=== PATIENT | male | born 1995 | race Asian ===

== ENCOUNTER 2019-07-04 19:09 | Emergency (ER) | payer OTHER ==
[~2019-07-04] VITALS: Ht 167.6 cm; Wt 71.7 kg
[2019-07-04 18:29] VITALS: BP 154/85
--- NOTE | 2019-07-04 18:30 | NUR ---
ED Nurse Note: Pt from home brought in by [facility] 13 due to SOB x 30 mins ago. Denies CP. No recent travel or fever. AAO x4 and ambulatory.
--- NOTE | 2019-07-04 18:59 | NUR ---
HAND-OFF: Report given to Tracy HERNÁNDEZ.
--- NOTE | 2019-07-04 19:05 | Emergency Room Report ---
History of Present Illness General Chief Complaint: Dyspnea/Respdistress Source: Patient Present Illness HPI 24-year-old male presents to the emergency department complaining of isolated transient episode of hyperventilation, feeling short of breath, numbness and tingling in the bilateral hands as well as some muscle spasm in the hands x30 minutes. He denied having CP. Patient reports that his symptoms began to resolve once paramedics arrived at his house and told him to calm down. He denies pain. Denies dizziness, Palpitations, AMS/LOC/Syncope. He denies cardiac history, history of asthma, COPD or smoking. Patient denies doing anything strenuous prior to onset of his symptoms. He denies being under any significant amount of stress. He reports having a mild cough without fevers or chills or sputum production several days ago. Denies history of anxiety or panic attacks. Denies recent travel. Denies contact with persons who have tested positive for or are under investigation/quarantine for COVID-19. Pt. denies hx of similar episode in the past. Denies PMHX. Allergies: Coded Allergies: No Known Allergies (Unverified , 07/04/19) COVID-19 Screening Contact w/high risk pt: No Recent Travel to affected area: No Experienced COVID-19 symptoms?: Yes COVID-19 symptoms experienced: Shortness of Breath Patient History Past Medical History: see triage record Past Surgical History: none Pertinent Family History: none Reviewed Nursing Documentation: PMH: Agreed; PSxH: Agreed Nursing Documentation-PMH Past Medical History: No Stated History Review of Systems All Other Systems: negative except mentioned in HPI Physical Exam Vital Signs Date Time Temp Pulse Resp B/P (MAP) Pulse Ox O2 Delivery O2 Flow Rate FiO2 07/04/19 18:29 97.0 90 18 154/85 (108) 100 Room Air Sp02 EP Interpretation: reviewed, normal General Appearance: no apparent distress, alert, GCS 15, non-toxic Head: normocephalic, atraumatic Eyes: bilateral eye normal inspection, bilateral eye PERRL ENT: hearing grossly normal, normal voice Neck: full range of motion Respiratory: chest non-tender, lungs clear, normal breath sounds, no respiratory distress, no accessory muscle use, no wheezing, speaking full sentences Cardiovascular #1: regular rate, rhythm, no edema, normal capillary refill Genitourinary: normal inspection Musculoskeletal: back normal, normal range of motion, gait/station normal, non- tender Neurologic: alert, motor strength/tone normal, oriented x3, sensory intact, responsive, speech normal Psychiatric: judgement/insight normal Skin: normal color Medical Decision Making PA Attestation Dr. Sultana is my supervising Physician whom patient management has been discussed with. Diagnostic Impression: Primary Impression: Hyperventilation syndrome ER Course 24-year-old male presents to the emergency department complaining of isolated transient episode of hyperventilation, feeling short of breath, numbness and tingling in the bilateral hands as well as some muscle spasm in the hands x30 minutes. He denied having CP. Patient reports that his symptoms began to resolve once paramedics arrived at his house and told him to calm down. He denies pain. Denies dizziness, Palpitations, AMS/LOC/Syncope. He denies cardiac history, history of asthma, COPD or smoking. Patient denies doing anything strenuous prior to onset of his symptoms. He denies being under any significant amount of stress. He reports having a mild cough without fevers or chills or sputum production several days ago. Denies history of anxiety or panic attacks. Denies recent travel. Denies contact with persons who have tested positive for or are under investigation/quarantine for COVID-19. Pt. denies hx of similar episode in the past. Denies PMHX. Ddx considered but are not limited to anxiety, TN, PE, asthma, thyroid storm, hyperthyroid, EPS Vital signs: are WNL, pt. is afebrile H&PE are most consistent with hyperventilation syndrome in a pt. with low Cardiac RF and has a Wells criteria of zero. ORDERS: none required at this time, the diagnosis is clinical ED INTERVENTIONS: - None required at this time. Pt. is asymptomatic DISCHARGE: At this time pt. is stable for d/c to home. Will provide printed patient care instructions, and any necessary prescriptions. Care plan and follow up instructions have been discussed with the patient prior to discharge. Last Vital Signs Date Time Temp Pulse Resp B/P (MAP) Pulse Ox O2 Delivery O2 Flow Rate FiO2 07/04/19 18:39 90 18 Room Air 07/04/19 18:29 97.0 154/85 100 Disposition: HOME, SELF-CARE Condition: Stable Patient Instructions: Hyperventilation, Shortness of Breath, [id number] Additional Instructions: Take medications as directed. Follow up with a Primary Care Provider in 3-5 days, even if your symptoms have resolved. --Please review list of primary care clinics, if you do not already have a primary care provider Return sooner to ED if new symptoms occur, or current symptoms become worse. - Please note that this Emergency Department Report was dictated using [employer] designer technology software, occasionally this can lead to erroneous entry secondary to interpretation by the dictation equipment. Rosie Dominguez Jul 04, 2019 19:05
[2019-07-04 19:48] VITALS: BP 154/85
--- NOTE | 2019-07-04 19:48 | NUR ---
ER DISCHARGE NOTE: Patient is cleared to be discharged per ERMD, pt is aox4, on room air, with stable vital signs. pt was given dc instructions, pt was able to verbalize understanding, pt id band removed without complications. pt is able to ambulate with steady gait. pt took all belongings.
== END 2019-07-04 19:48 | disposition home or self-care (01) ==
LOC: EDBD 19:09 → EMR 19:40
DX: F45.8 Other somatoform disorders (principal); R20.0 Anesthesia of skin; R06.02 Shortness of breath
CPT/HCPCS: 99282

== ENCOUNTER 2019-07-20 17:24 | Emergency (ER) | payer OTHER ==
[~2019-07-20] VITALS: Ht 167.6 cm; Wt 70.3 kg
[2019-07-20 18:30] VITALS: BP 128/85
[2019-07-20] MEDS ORDERED: AMITRIPTYLINE100 MG ORAL (18:31)
[2019-07-20] MEDS ORDERED: XANAX0.25 MG ORAL (18:32)
[2019-07-20] MEDS ORDERED: LORazepam 1mg tab ORAL ONE (18:45)
--- NOTE | 2019-07-20 18:56 | Emergency Room Report ---
History of Present Illness General Chief Complaint: Behavioral Complaint Source: Patient Present Illness HPI 24-year-old male with history of depression and anxiety who used to take amitriptyline and has psychiatrist to follow-up with here complaining of increased anxiety and feeling like he is hyperventilating. Upon arrival he reported that last night he was hyperventilating too much that he decided that maybe it is easier for him to be however denies any suicidal ideation or homicidal ideation at this time. Patient reports that he did not even have any suicidal ideation last night. Reports that he has never felt or tried harming himself or others. Reports that he has an appointment with psychiatrist tomorrow. I had my nurse Linda with me and we asked the patient 3 times if he has any suicidal ideation at this time and he denied all 3 times. Patient feels like whenever he takes anxiety medication he hyperventilates and he thinks that it is his lungs acting up. Reports that he does not want to be taking medication on daily basis. Patient prefers to go see his own psychiatrist rather than getting into any mental health facility. Patient has full judgment on making his decisions. My nurse presented was present as my witness the whole time. Denies any SOB and chest pain at this time. Denies cough and congestion fever at this time. Denies drug use and tobacco smoke. Denies alcohol intake. Patient was also seen [facility] on July 04, 2019 for the same reason. Allergies: Coded Allergies: No Known Allergies (Unverified , 07/04/19) Patient History Past Medical History: see triage record Past Surgical History: none Family History: none Immunizations: UTD Reviewed Nursing Documentation: PMH: Agreed; PSxH: Agreed Nursing Documentation-PMH Past Medical History: No History, Except For History Of Psychiatric Problem: Yes - depression Review of Systems All Other Systems: negative except mentioned in HPI Physical Exam Vital Signs Date Time Temp Pulse Resp B/P (MAP) Pulse Ox O2 Delivery O2 Flow Rate FiO2 07/20/19 18:21 97.7 74 16 132/82 (99) 99 Room Air Sp02 EP Interpretation: reviewed, normal General Appearance: alert/responsive, no apparent distress, GCS 15, non-toxic Head: atraumatic Eyes: PERRL, lids + conjunctiva normal ENT: hearing intact, no angioedema Neck: supple/symm/no masses, no meningismus Respiratory: effort normal, no wheezing, chest symmetrical Cardiovascular: regular rate, rhythm, no edema Gastrointestinal: non-tender, no mass, non-distended, no rebound/guarding, normal bowel sounds Musculoskeletal: gait & station normal, normal ROM, strength & tone normal, non -tender Neurologic: oriented x3, sensory intact, normal speech Psychiatric: judgment & insight normal, no suicidal/homicidal ideation, anxious Suicide Risk Assessment: Suicidal Ideation: No Had intent to initiate attempt: No Pt's plan for suicide attempt: No Has means to complete attempt: No Skin: normal inspection Lymphatic: normal inspection Medical Decision Making PA Attestation All my diagnosis and treatment plans were reviewed ad discussed with my supervising physician Dr. Carlson Diagnostic Impression: Primary Impression: Anxiety ER Course 24-year-old male with history of depression and anxiety who used to take amitriptyline and has psychiatrist to follow-up with here complaining of increased anxiety and feeling like he is hyperventilating. Upon arrival he reported that last night he was hyperventilating too much that he decided that maybe it is easier for him to be however denies any suicidal ideation or homicidal ideation at this time. Patient reports that he did not even have any suicidal ideation last night. Reports that he has never felt or tried harming himself or others. Reports that he has an appointment with psychiatrist tomorrow. I had my nurse Linda with me and we asked the patient 3 times if he has any suicidal ideation at this time and he denied all 3 times. Patient feels like whenever he takes anxiety medication he hyperventilates and he thinks that it is his lungs acting up. Reports that he does not want to be taking medication on daily basis. Patient prefers to go see his own psychiatrist rather than getting into any mental health facility. Patient has full judgment on making his decisions. My nurse presented was present as my witness the whole time. Denies any SOB and chest pain at this time. Denies cough and congestion fever at this time. Denies drug use and tobacco smoke. Denies alcohol intake. Patient was also seen [facility] on July 04, 2019 for the same reason. Patient reports that he has been dealing with anxiety for a very long time Ddx considered but are not limited to: generalized anxiety disorder, panic attack, depression with psychotic feature, bipolar disorder, drug overdose Vital signs: are WNL, pt. is afebrile H&PE are most consistent with: Anxiety ORDERS: Chest x-ray to assure patient that his lungs are okay, ED INTERVENTIONS: Ativan p.o. however patient refuses as he believes that it is not his anxiety and he is afraid he is going to hyperventilate again DISCHARGE: At this time pt. is stable for d/c to home. Will provide printed patient care instructions, and any necessary prescriptions. Care plan and follow up instructions have been discussed with the patient prior to discharge. Follow-up with primary doctor and psychiatrist patient prefers to follow-up with his own psychiatrist. Denies any suicidal ideation upon discharge. Chest X-Ray Diagnostic Results Chest X-Ray Diagnostic Results : Chest X-Ray Ordered: Yes # of Views/Limited/Complete: 1 View Indication: Other EP Interpretation: Yes Interpretation: no consolidation, no effusion, no pneumothorax Impression: No acute disease Electronically Signed by: Sae Palm PA-C Last Vital Signs Date Time Temp Pulse Resp B/P (MAP) Pulse Ox O2 Delivery O2 Flow Rate FiO2 07/20/19 18:21 97.7 74 16 132/82 (99) 99 Room Air Disposition: HOME, SELF-CARE Condition: Stable Referrals: NON PHYSICIAN (PCP) Patient Instructions: Generalized Anxiety Disorder Additional Instructions: Follow-up with primary doctor and psychiatrist. You stated that you prefer to follow-up with his own psychiatrist. Denies any suicidal ideation upon discharge. If worsening symptoms return to the emergency room Sae Amin Jul 20, 2019 18:55
[2019-07-20 19:10] VITALS: BP 124/81
--- NOTE | 2019-07-21 08:33 | Diagnostic Imaging Report ---
Indication: Wrist pain Technique: XRAY Chest 1v Comparison: None Findings: Heart size and mediastinal contours are within normal limits for AP technique. There is no focal airspace consolidation, pneumothorax or pleural effusion. Osseous structures demonstrate no acute abnormality. Impression: No radiographic evidence of acute cardiopulmonary disease.
== END 2019-07-20 19:10 | disposition home or self-care (01) ==
LOC: EMR 17:40
DX: F41.9 Anxiety disorder, unspecified (principal); F32.9 Major depressive disorder, single episode, unspecified
CPT/HCPCS: 71045; Z7502; 99283